=== PATIENT | female | born 1955 | race Caucasian/White ===

== ENCOUNTER → 2017-04-15 08:27 | Emergency (ER) | payer BC ==
[~2017-04-15 08:27] MED LIST: Ibuprofen TAB* 800 MG PO ONE
--- NOTE | 2017-04-15 09:13 | ED ---
Upper Extremity Pain - HPI Summary HPI Summary: Pt here w/ Lt wrist and arm pain after slip and fall at school today. 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 Has Lt wrist pain worse w/ movements - radiates from wrist up to arm. Lt arm pain as well. No elbow or shoulder pain and denies hitting head, neck pain, back pain, LE pain. Has been icing but no meds yet. Denies numbness, tingling, weakness. No previous injuries here. - History of Current Complaint Chief Complaint: EDExtremityUpper Stated Complaint: LT WRIST INJURY Time Seen by Provider: 04/15/17 08:32 Hx Obtained From: Patient, Family/Retail Team Leader - friend, boss from work - Allergies/Home Medications Allergies/Adverse Reactions: Allergies Allergy/AdvReac Type Severity Reaction Status Date / Time Latex Allergy OCCASIONAL Verified 08/07/15 06:58 ITCHY REDDENED SKIN ENVIRONMENTAL Allergy Unknown Uncoded 08/07/15 06:58 Reaction Details PMH/Surg Hx/FS Hx/Imm Hx Previously Healthy: Yes Endocrine/Hematology History: Denies: Hx Anticoagulant Therapy, Hx Blood Disorders, Hx Diabetes Cardiovascular History: Reports: Hx Hypercholesterolemia, Hx Hypertension, Other Cardiovascular Problems/Disorders - CAROTID BLOCKAGE 50% Denies: Hx Pacemaker/ICD Respiratory History: Reports: Hx Asthma - uses neb, Hx Seasonal Allergies, Hx Sleep Apnea - current CPAP user, compliant GI History: Reports: Hx Gastroesophageal Reflux Disease, Hx Hiatal Hernia History: Reports: Hx Kidney Stones - CURRENTLY/HX OF CYSTS ON KIDNEYS, Other Problems/Disorders - bladder infection, asymptomatic Denies: Hx Dialysis, Hx Renal Disease Musculoskeletal History: Reports: Other Musculoskeletal History - bilateral carpal tunnel Sensory History: Reports: Hx Contacts or Glasses, Hx Hearing Aid, Hx Hearing Problem Opthamlomology History: Reports: Hx Contacts or Glasses Psychiatric History: Reports: Hx Anxiety, Hx Depression Denies: Hx Panic Disorder - Cancer History Hx Chemotherapy: No Hx Radiation Therapy: No - Surgical History Surgery Procedure, Year, and Place: 1985 , 1985 [facility], deviated septum- [place], tubal ligation, 06/02 [facility]- (right) foot 5th digit exotosis, 03/04 [facility]-( left)carpal tunnel, 07/04 [facility]-(right) carpal tunnel, 10/2007 [facility]-. bladder prolapse & hernia Hx Anesthesia Reactions: Yes - NAUSEA AND VOMITING - Immunization History Date of Tetanus Vaccine: Unknown Infectious Disease History: No Infectious Disease History: Denies: Traveled Outside the [place] in Last 30 Days - Family History Known Family History: Positive: Cardiac Disease - Social History Occupation: Employed Full-time Lives: With Family Alcohol Use: Occasionally Hx Substance Use: No Substance Use Type: Reports: None Hx Tobacco Use: No Smoking Status (MU): Never Smoked Tobacco Physical Exam Vital Signs On Initial Exam: Initial Vitals Temp Pulse Resp BP Pulse Ox 98.3 F 74 20 123/88 97 04/15/17 08:31 04/15/17 08:31 04/15/17 08:31 04/15/17 08:31 04/15/17 08:31 - [place] Coma Scale Coma Scale Total: 15 Procedures - Splinting Location: Lt UE Hand-Made Type: fiberglass Splint: sugar-tong Pre-Proc Neuro Vasc Exam: normal Post-Proc Neuro Vasc Exam: normal Diagnostics - Vital Signs Vital Signs Temp Pulse Resp BP Pulse Ox 04/15/17 08:31 98.3 F 74 20 123/88 97 - Laboratory Lab Statement: Any lab studies that have been ordered have been reviewed, and results considered in the medical decision making process. Re-Evaluation - Re-Evaluation First Eval Change: Improved Course/Dx - Diagnoses Provider Diagnoses: Closed fracture of left distal radius and ulna Discharge - Discharge Plan Condition: Stable Disposition: HOME Patient Education Materials: Wrist Fracture in Adults (ED), Splint Care (ED) Forms: *Work Release Referrals: Oscar Shahid MD [Medical Doctor] - Additional Instructions: Rest, ice, elevate and keep splint clean, dry and in place until seen by orthopedics. Call today to schedule an appointment. You may alternate ibuprofen with food and acetaminophen for pain. *If you develop numbness, tingling, weakness, swelling of fingers, loosen GLENDY wrap and elevate for 20 minutes - if symptoms persist, return to ED
--- NOTE | 2017-04-15 10:14 | RAD ---
HISTORY: Left wrist and arm pain, trauma COMPARISONS: None VIEWS: 5, Frontal, lateral, and oblique views of the left wrist with frontal internal and external rotation views of the left humerus FINDINGS: BONE DENSITY: Normal. BONES: There is a nondisplaced transverse fracture of the distal radial metaphysis. There is a nondepressed fracture of the styloid process of the ulna. JOINTS: There is mild osteoarthritis of the a.c. and glenohumeral joints. ALIGNMENT: There is no dislocation. SOFT TISSUES: Unremarkable. OTHER FINDINGS: None. IMPRESSION: 1. NONDISPLACED FRACTURES OF THE DISTAL RADIUS AND STYLOID PROCESS OF THE ULNA. 2. LEFT SHOULDER OSTEOARTHRITIS.
[2017-04-15 11:06] VITALS: BP 92/55
== END | disposition home or self-care (01) ==
LOC: ED 08:27
DX: M79.602 Pain in left arm (principal); M25.532 Pain in left wrist; S52.92XA Unspecified fracture of left forearm, initial encounter for closed fracture; W01.0XXA Fall on same level from slipping, tripping and stumbling without subsequent striking against object, initial encounter; Y92.9 Unspecified place or not applicable
CPT/HCPCS: 99282; A9270-GY